=== PATIENT | female | born 1980 | race African-American/Black ===

== ENCOUNTER 2017-11-22 18:12 | Emergency (ER) | payer MEDICAID ==
[2017-11-22] MEDS ORDERED: Pantoprazole IV* 40 MG IV ONE (19:08)
[2017-11-22 19:46] LABS: ABS Basophils 0.1 10^3/ul (0-0.2); ABS Eosinophils 0.1 10^3/ul (0-0.6); ABS Lymphocytes 4.1 10^3/ul (1.0-4.8); ABS Neutrophils 6.1 10^3/ul (1.5-7.7); ABS Nucleated RBC 0 10^3/ul; Hematocrit 37 % (35-47); Hemoglobin 11.9 g/dl (12.0-16.0); Lymphocyte % 35.6 % (25-47); Mean Corpuscular HGB Conc 33 g/dl (31-36); Mean Corpuscular Hemoglobin 30 pg (27-31); Mean Corpuscular Volume 92 fL (80-97); Mean Platelet Volume 8 um3 (7.4-10.4); Nucleated Red Blood Cells % 0.2; Platelet Count 308 10^3/ul (150-450); Red Blood Count 3.98 10^6/ul (4.0-5.4); Red Cell Distribution Width 16 % (10.5-15); White Blood Count 11.4 10^3/ul (3.5-10.8)
[2017-11-22 19:53] LABS: Urine Appearance Clear; Urine Blood Negative (Negative); Urine Color Yellow; Urine Ketones Negative (Negative); Urine Protein Negative (Negative); Urine Specific Gravity 1.011 (1.010-1.030); Urine Urobilinogen Negative (Negative)
[2017-11-22 19:57] LABS: EGFR Non-African American 75.5 (>60)
--- NOTE | 2017-11-22 22:10 | ED ---
Gautam White Thomas, scribed for Jair Barnard MD on 11/22/17 at 1911 . Abdominal Pain/Female - HPI Summary HPI Summary: The patient is a 37 year old female complaining of sudden-onset epigastric and LUQ abd pain that began two hours ago after she ate dinner. The pain is described as sharp. She rates the pain 8/10. The pain is somewhat relieved at time of examination. Past medical history includes gastric bypass in 2002. She is an inpatient at [facility] for alcohol and opioids. - History of Current Complaint Chief Complaint: EDAbdPain Stated Complaint: ABD PAIN Time Seen by Provider: 11/22/17 18:34 Hx Obtained From: Patient Onset/Duration: Lasting Hours - 2, Still Present Timing: Constant Severity Currently: Severe Pain Intensity: 8 Pain Scale Used: 0-10 Numeric Location: Discrete At: LUQ, Epigastric Aggravating Factor(s): Food Alleviating Factor(s): Nothing Associated Signs and Symptoms: Positive: Negative - fever Allergies/Adverse Reactions: Allergies Allergy/AdvReac Type Severity Reaction Status Date / Time Penicillins Allergy Unknown Verified 11/22/17 21:50 Reaction Details Home Medications: Home Medications Ibuprofen TAB* [Motrin TAB* 400 MG] 400 mg PO Q6H PRN 11/22/17 [History Confirmed 11/22/17] PMH/Surg Hx/FS Hx/Imm Hx Sensory History: Denies: Hx Legally Blind EENT History: Denies: Hx Deafness Infectious Disease History: No Infectious Disease History: Denies: Traveled Outside the [place] in Last 30 Days - Family History Known Family History: Positive: Hypertension, Diabetes - Social History Alcohol Use: in [facility] for detox Substance Use Type: Reports: None Smoking Status (MU): Former Smoker Review of Systems Negative: Fever Positive: Abdominal Pain All Other Systems Reviewed And Are Negative: Yes Physical Exam - Summary Physical Exam Summary: Appearance: The patient is well-nourished in no acute distress and in no acute pain. Skin: The skin is warm and dry and skin color reflects adequate perfusion. HEENT: The head is normocephalic and atraumatic. The pupils are equal and reactive. The conjunctivae are clear and without drainage. Nares are patent and without drainage. Mouth reveals moist mucous membranes and the throat is without erythema and exudate. The external ears are intact. The ear canals are patent and without drainage. The tympanic membranes are intact. Neck: the neck is supple with full range of motion and non-tender. There are no carotid bruits. There is no neck vein distension. Respiratory: Chest is non-tender. Lungs are clear to auscultation and breath sounds are symmetrical and equal. Cardiovascular: Heart is regular rate and rhythm. There is no murmur or rub auscultated. There is no peripheral edema and pulses are symmetrical and equal. Abdomen: The abdomen is soft. There is mild supraumbilical tenderness. There are normal bowel sounds heard in all four quadrants and there is no organomegaly palpated. Musculoskeletal: There is no back tenderness noted. Extremities are non-tender with full range of motion. There is good capillary refill. There is no peripheral edema or calf tenderness elicited. Neurological: Patient is alert and oriented to person, place and time. The patient has symmetrical motor strength in all four extremities. Cranial nerves are grossly intact. Deep tendon reflexes are symmetrical and equal in all four extremities. Psychiatric: The patient has an appropriate affect and does not exhibit any anxiety or depression. Vital Signs On Initial Exam: Initial Vitals Temp Pulse Resp BP Pulse Ox 98.0 F 88 18 128/80 100 11/22/17 18:14 11/22/17 18:14 11/22/17 18:14 11/22/17 18:14 11/22/17 18:14 Diagnostics - Vital Signs Vital Signs Temp Pulse Resp BP Pulse Ox 11/22/17 18:20 91 100 11/22/17 18:14 98.0 F 88 18 128/80 100 - Laboratory Lab Results: Lab Results 11/22/17 11/22/17 11/22/17 Range/Units 19:29 19:29 19:29 WBC 11.4 H (3.5-10.8) 10^3/ul RBC 3.98 L (4.0-5.4) 10^6/ul Hgb 11.9 L (12.0-16.0) g/dl Hct 37 (35-47) % MCV 92 (80-97) fL MCH 30 (27-31) pg MCHC 33 (31-36) g/dl RDW 16 H (10.5-15) % Plt Count 308 (150-450) 10^3/ul MPV 8 (7.4-10.4) um3 Neut % (Auto) 53.8 (38-83) % Lymph % (Auto) 35.6 (25-47) % [place] % (Auto) 8.7 (1-9) % Eos % (Auto) 1.0 (0-6) % Baso % (Auto) 0.9 (0-2) % Absolute Neuts (auto) 6.1 (1.5-7.7) 10^3/ul Absolute Lymphs (auto) 4.1 (1.0-4.8) 10^3/ul Absolute Monos (auto) 1.0 H (0-0.8) 10^3/ul Absolute Eos (auto) 0.1 (0-0.6) 10^3/ul Absolute Basos (auto) 0.1 (0-0.2) 10^3/ul Absolute Nucleated RBC 0 10^3/ul Nucleated RBC % 0.2 Sodium 134 (133-145) mmol/L Potassium 3.6 (3.5-5.0) mmol/L Chloride 106 (101-111) mmol/L Carbon Dioxide 23 (22-32) mmol/L Anion Gap 5 (2-11) mmol/L BUN 11 (6-24) mg/dL Creatinine 0.84 (0.51-0.95) mg/dL Est GFR ( Amer) 97.1 (>60) Est GFR (Non-Af Amer) 75.5 (>60) BUN/Creatinine Ratio 13.1 (8-20) Glucose 80 (70-100) mg/dL Lactic Acid 0.8 (0.5-2.0) mmol/L Calcium 8.8 (8.6-10.3) mg/dL Total Bilirubin 0.40 (0.2-1.0) mg/dL AST 11 L (13-39) U/L ALT 9 (7-52) U/L Alkaline Phosphatase 63 (34-104) U/L C-Reactive Protein < 1.00 (< 5.00) mg/L Total Protein 6.5 (6.4-8.9) g/dL Albumin 3.7 (3.2-5.2) g/dL Globulin 2.8 (2-4) g/dL Albumin/Globulin Ratio 1.3 (1-3) Lipase 10 L (11.0-82.0) U/L Beta HCG, Quant < 0.60 mIU/mL Urine Color Urine Appearance Urine pH (5-9) Ur Specific [place] (1.010-1.030) Urine Protein (Negative) Urine Ketones (Negative) Urine Blood (Negative) Urine Nitrate (Negative) Urine Bilirubin (Negative) Urine Urobilinogen (Negative) Ur Leukocyte Esterase (Negative) Urine Glucose (Negative) 11/22/17 Range/Units 19:29 WBC (3.5-10.8) 10^3/ul RBC (4.0-5.4) 10^6/ul Hgb (12.0-16.0) g/dl Hct (35-47) % MCV (80-97) fL MCH (27-31) pg MCHC (31-36) g/dl RDW (10.5-15) % Plt Count (150-450) 10^3/ul MPV (7.4-10.4) um3 Neut % (Auto) (38-83) % Lymph % (Auto) (25-47) % [place] % (Auto) (1-9) % Eos % (Auto) (0-6) % Baso % (Auto) (0-2) % Absolute Neuts (auto) (1.5-7.7) 10^3/ul Absolute Lymphs (auto) (1.0-4.8) 10^3/ul Absolute Monos (auto) (0-0.8) 10^3/ul Absolute Eos (auto) (0-0.6) 10^3/ul Absolute Basos (auto) (0-0.2) 10^3/ul Absolute Nucleated RBC 10^3/ul Nucleated RBC % Sodium (133-145) mmol/L Potassium (3.5-5.0) mmol/L Chloride (101-111) mmol/L Carbon Dioxide (22-32) mmol/L Anion Gap (2-11) mmol/L BUN (6-24) mg/dL Creatinine (0.51-0.95) mg/dL Est GFR ( Amer) (>60) Est GFR (Non-Af Amer) (>60) BUN/Creatinine Ratio (8-20) Glucose (70-100) mg/dL Lactic Acid (0.5-2.0) mmol/L Calcium (8.6-10.3) mg/dL Total Bilirubin (0.2-1.0) mg/dL AST (13-39) U/L ALT (7-52) U/L Alkaline Phosphatase (34-104) U/L C-Reactive Protein (< 5.00) mg/L Total Protein (6.4-8.9) g/dL Albumin (3.2-5.2) g/dL Globulin (2-4) g/dL Albumin/Globulin Ratio (1-3) Lipase (11.0-82.0) U/L Beta HCG, Quant mIU/mL Urine Color Yellow Urine Appearance Clear Urine pH 5.0 (5-9) Ur Specific [place] 1.011 (1.010-1.030) Urine Protein Negative (Negative) Urine Ketones Negative (Negative) Urine Blood Negative (Negative) Urine Nitrate Negative (Negative) Urine Bilirubin Negative (Negative) Urine Urobilinogen Negative (Negative) Ur Leukocyte Esterase Negative (Negative) Urine Glucose Negative (Negative) Result Diagrams: 11/22/17 19:29 11/22/17 19:29 Lab Statement: Any lab studies that have been ordered have been reviewed, and results considered in the medical decision making process. Abdominal Pain Fem Course/Dx - Course Course Of Treatment: Ms. Salamanca presented with some mild epigastric pain after eating. She comes from [facility] where she has been a patient for about a week for ETOH detox. She had a gastric bypass in '03 and hasn't had any problems with it. Because her symptomatology is so mild and her exam also, I am treating her with protonix and carafate with the hope that we see a strong improvement. Her WBCs are very lightly increased which is nonspecific and if she doesn't improve , she will need a CT. - Diagnoses Provider Diagnoses: Abdominal pain Discharge - Discharge Plan Condition: Stable Disposition: HOME Patient Education Materials: Abdominal Pain (ED) Referrals: [facility] [place] - 3 Days Additional Instructions: Follow up with your primary care physician in three days. If you do not have a primary care provider, you can use the [facility] [place] to find one and make an appointment. Return to the emergency department for any new or worsening symptoms. The documentation as recorded by the Gautam barragan Thomas accurately reflects the service I personally performed and the decisions made by me, Jair Barnard MD.
--- NOTE | 2017-11-22 22:51 | ED ---
Progress - Progress Note Progress Note: pt here for epigastric discomfort after eating that is now largely gone. LFTs wnl. Hx of gastric bypass. Pt now is most concerned with sinus sx she has had for several weeks. States she was recently on Augmentin and only took 3 days of med prior to being sent to [facility] program here locally. Wants more antibiotic. Re-Evaluation - Re-Evaluation First Eval Change: Improved - abd is soft and non-tender. Pt is comfortable. Ears and throat clear. Course/Dx - Course Course Of Treatment: Ms. Salamanca presented with some mild epigastric pain after eating. She comes from [facility] where she has been a patient for about a week for ETOH detox. She had a gastric bypass in '03 and hasn't had any problems with it. Because her symptomatology is so mild and her exam also, I am treating her with protonix and carafate with the hope that we see a strong improvement. Her WBCs are very lightly increased which is nonspecific and if she doesn't improve , she will need a CT. Pt's abd discomfort now largely resolved. She is most concerned with her sinuses, being off med. Abd non-tender on exam. Recommend outpt US. D/C Ibuprofen which may be causing sx/possible gastritis. D/C on pepcid, carafate and augmentin. - Diagnoses Provider Diagnoses: Abdominal pain, Sinusitis, acute
[2017-11-22 23:09] VITALS: BP 112/70
== END 2017-11-22 23:09 | disposition home or self-care (01) ==
LOC: ED 18:12
DX: R10.12 Left upper quadrant pain (principal); J01.90 Acute sinusitis, unspecified; Z87.891 Personal history of nicotine dependence
CPT/HCPCS: 36415; 80053; 81003; 83605; 83690; 84702; 85025; 86140; 87040; 96374; 99283

== ENCOUNTER 2017-12-15 15:48 | Emergency (ER) | payer MEDICAID ==
[2017-12-15 16:59] VITALS: BP 152/91
--- NOTE | 2017-12-15 17:34 | UC ---
Headache HPI - HPI Summary HPI Summary: Pt presents with complaints of increasing headaches. She tells me that she has a history of migraines, but over the last month her headaches have felt different. Intermittently at random at least one everyday she will have 3-5 seconds of 10/10 b/l temporal pain that feels like tension. She was diagnosed with a sinus infection about 3 weeks ago and given Augmentin, which she stopped taking after 2 days when she realized it was Penicillin - they replaced it with doxycycline. Her sinus symptoms have improved. She has a history of opioid abuse and gastric bypass - as a result she can only take tylenol for her pain, which has been providing no relief. She is also on many mental health medications and says these have been adjusted up and down over the last few weeks. Also complains of lower dental pain on both sides and wonders if this could be causing her pain. Has f/u with a dentist but is unsure when. She denies vision changes, dizziness, SOB, chest pain, nausea, vomiting, trauma, or LOC. - History Of Current Complaint Chief Complaint: UCHeadache Stated Complaint: HEADACHE Time Seen by Provider: 12/15/17 17:24 Hx Obtained From: Patient Hx Last Menstrual Period: 12/03/17 Onset/Duration: Gradual Onset Currently Pain Is: Mild Pain Intensity: 4 Pain Scale Used: 0-10 Numeric Timing: Intermittent, Lasting:, Seconds Character: Throbbing, Pressure Location of Headache: Temporal Aggravating Factor(s): Nothing Allevating Factor(s): Nothing - Allergies/Home Medications Allergies/Adverse Reactions: Allergies Allergy/AdvReac Type Severity Reaction Status Date / Time Penicillins Allergy Unknown Verified 12/15/17 16:59 Reaction Details Home Medications: Home Medications Acetaminophen [Tylenol] 12/15/17 [History] Buprenorphine HCl/Naloxone HCl [Suboxone 12 mg-3 mg Sl Film] 12/15/17 [History Confirmed 12/15/17] Escitalopram Oxalate [Lexapro 20 mg] 20 mg PO DAILY 12/15/17 [History Confirmed 12/15/17] Gabapentin CAP(*) [Neurontin 400 mg CAP(*)] 400 mg PO BID 12/15/17 [History Confirmed 12/15/17] Lurasidone(*) [Latuda] 30 mg PO BID 12/15/17 [History Confirmed 12/15/17] Prazosin CAP* [Minipress CAP*] 4 mg PO DAILY 12/15/17 [History Confirmed ] Topiramate [Topiramate ER 50 mg cap] 50 mg PO BID 12/15/17 [History Confirmed ] cloNIDine TAB* [Catapres 0.1 MG TAB*] 0.1 mg PO TID PRN 12/15/17 [History Confirmed 12/15/17] diPHENhydraMINE PO* [Benadryl PO 25 MG TAB*] 25 mg PO DAILY PRN 12/15/17 [ History Confirmed 12/15/17] PMH/Surg Hx/FS Hx/Imm Hx - Additional Past Medical History Additional PMH: Migraines Opioid abuse Gastric bypass status GI/ History: Gastroesophageal Reflux Psychological History: Anxiety, Depression - Surgical History Surgical History: Yes Surgery Procedure, Year, and Place: gastric bypass, hep c treated - Family History Known Family History: Positive: Hypertension, Diabetes - Social History Lives: Shelter Alcohol Use: None Substance Use Type: None Smoking Status (MU): Former Smoker Review of Systems Constitutional: Negative Skin: Negative Eyes: Negative ENT: Negative Respiratory: Negative Cardiovascular: Negative Gastrointestinal: Negative Neurovascular: Negative Musculoskeletal: Negative Neurological: Headache Psychological: Negative All Other Systems Reviewed And Are Negative: Yes Physical Exam - Summary Physical Exam Summary: GENERAL: NAD. WDWN. No pain distress. SKIN: No rashes, sores, ulcers, masses, lesions. HEENT: Head: AT/NC Eyes: PERRLA. EOM intact. Conjunctiva clear without inflammation or discharge. Ears: Hearing grossly normal. TMs intact, no bulging, erythema, or edema. Mouth: Gross dental caries throughout. Fractured tooth at #19 and #30. No cellulitis or abscess. NECK: Supple. Nontender. No lymphadenopathy. FROM. CHEST: CTAB. No r/r/w. No accessory muscle use. Breathing comfortably and in no distress. CV: RRR. Without m/r/g. Pulses intact. Brisk cap refill. MSK: FROM and 5/5 strength B/L UEs and LEs. Sensations intact C4-T1. NEURO: A&Ox3. 3 word recall, remote, recent memory, ability to follow 2-step directions, and attention intact. CN II-XII grossly intact. [id number] intact. Gait with normal base. Romberg: maintains balance, no pronator drift. Normal speech. No facial drooping. PSYCH: Age appropriate behavior. Triage Information Reviewed: Yes Vital Signs: Initial Vital Signs Temp 98.2 F 12/15/17 16:52 Pulse 95 12/15/17 16:52 Resp 18 12/15/17 16:52 BP 152/91 12/15/17 16:52 Pulse Ox 98 12/15/17 16:52 Headache Course/Dx - Course Course Of Treatment: Head CT: IMPRESSION: NO EVIDENCE FOR ACUTE INTRACRANIAL ABNORMALITY. I suspect her headaches are the result of her recent medication adjustments. I will refer her to neurology as she doesn't think the one time a month she sees her provided PCP is adequate. Advised to f/u with whomever is prescribing her mental health medications for additional adjustment. Will try magic mouthwash for her dental pain. - Differential Dx/Diagnosis Provider Diagnoses: Headache Discharge - Discharge Plan Condition: Stable Disposition: HOME Prescriptions: Magic M W2 Osvaldo/Maal/Nyst/Lido* 5 ml SWISH SPIT TID PRN #90 ml PRN Reason: Pain Patient Education Materials: Tension Headache (ED) Referrals: No Primary Care Phys,NOPCP [Primary Care Provider] - Kinza Pope MD [Medical Doctor] - As Soon As Possible Additional Instructions: If you develop a fever, shortness of breath, chest pain, new or worsening symptoms - please call your PCP or go to the ED. Your blood pressure was high at todays visit. Please see your primary provider within 4 weeks for recheck and re-evaluation. 1) Please call Neurology at the number below to schedule a follow up appointment regarding your increasing headaches.
--- NOTE | 2017-12-15 18:08 | RAD ---
INDICATION: Headache. COMPARISON: There are no prior studies available for comparison. TECHNIQUE: Contiguous axial sections of the brain were obtained from the skull base to the vertex without contrast. FINDINGS: The ventricles, cisterns and sulci are within normal limits. No significant focal abnormality or mass effect is seen. There is no evidence for hemorrhage. No significant focal osseous abnormality is seen. The visualized portion of the paranasal sinuses and mastoid air cells appear clear. IMPRESSION: NO EVIDENCE FOR ACUTE INTRACRANIAL ABNORMALITY.
== END 2017-12-15 18:36 | disposition home or self-care (01) ==
LOC: UCEAST 15:48
DX: R51 Headache (principal); K08.89 Other specified disorders of teeth and supporting structures; K21.9 Gastro-esophageal reflux disease without esophagitis; F41.9 Anxiety disorder, unspecified; F32.9 Major depressive disorder, single episode, unspecified; Z88.0 Allergy status to penicillin; Z87.891 Personal history of nicotine dependence
CPT/HCPCS: 70450; 99212; G0463

== ENCOUNTER 2018-01-03 19:14 | Emergency (ER) | payer MEDICAID, OTHER ==
[2018-01-03 19:27] VITALS: BP 137/97
--- NOTE | 2018-01-03 19:50 | UC ---
Knee Pain HPI - HPI Summary HPI Summary: 37 y/o female presents to the urgent care c/o RT knee pain that is worse since this morning. Pt reports she has HX of B/L knee meniscus repair in 2005 in [place]. However for the past month she has experience pain os and of of RT knee, specially when she gets out of bed in the morning and when she stands up. She has taking Tylenol PO to alleviate symptoms since she can't take any NSAIDS due to Hx of Gastric Bypass. She is also on Suboxone Tx. Pain is 8/10 w/ movement and 4/10 at test, radiating at times to her RT lower leg and Rt ankle. Pt denies Numbness and tingling sensation over the lower extremity,m SOB, chest pain, abdominal pain, N/V/D. - History of Current Complaint Chief Complaint: UCLowerExtremity Stated Complaint: KNEE PAIN Time Seen by Provider: 01/03/18 19:31 Hx Obtained From: Patient Hx Last Menstrual Period: 12/03/17 ?: No Onset/Duration: Gradual Onset, Lasting Days - past month on and off, Worse Since - this morning Severity Initially: Mild Severity Currently: Moderate Pain Intensity: 5 Pain Scale Used: 0-10 Numeric Character: Sharp Alleviating Factor(s): Rest, Cold, OTC Meds - Tylenol Associated Signs And Symptoms: Positive: Swelling. Negative: Redness, Bruising , Fever, Numbness, Tingling Able to Bear Weight: Yes - Risk Factors Septic Arthritis Risk Factor: Negative Gout Risk Factor: Negative - Allergies/Home Medications Allergies/Adverse Reactions: Allergies Allergy/AdvReac Type Severity Reaction Status Date / Time Penicillins Allergy Unknown Verified 01/03/18 19:27 Reaction Details PMH/Surg Hx/FS Hx/Imm Hx Previously Healthy: Yes Respiratory History: Asthma Other History Of: Hepatitis C - Surgical History Surgical History: Yes Surgery Procedure, Year, and Place: gastric bypass, hep c treated - Family History Known Family History: Positive: Hypertension, Diabetes - Social History Occupation: Unemployed Lives: With Family Alcohol Use: None Substance Use Type: None Smoking Status (MU): Former Smoker Review of Systems Constitutional: Negative Skin: Negative Eyes: Negative ENT: Negative, Dental Pain Cardiovascular: Negative Gastrointestinal: Negative Genitourinary: Negative Motor: Decreased ROM - RT knee Neurovascular: Negative Musculoskeletal: Decreased ROM - RT knee, Other: - RT knee pain radiating at the lower leg at times Neurological: Negative Psychological: Negative Is Patient Immunocompromised?: No All Other Systems Reviewed And Are Negative: Yes Physical Exam - Summary Physical Exam Summary: Vital Signs Reviewed: Yes General: well developed, well nourished male sitting in the examining table w/o any apparent distress Eyes: Positive: Conjunctiva Clear - PERRLA, EOMI, fundi grossly normal ENT: Positive: Normal ENT inspection, Hearing grossly normal, Pharynx normal, TMs normal Neck: Positive: Supple, Nontender, No Lymphadenopathy Respiratory: Positive: Chest nontender, Lungs clear, Normal breath sounds, No respiratory distress Cardiovascular: Positive: RRR, No Murmur, Pulses Normal, Brisk Capillary Refill Abdomen Description: Positive: Nontender, No Organomegaly, Soft. Negative: CVA Tenderness (R), CVA Tenderness (L) Bowel Sounds: Positive: Present Musculoskeletal: Positive: Strength Intact, No Edema, RT Knee: Pt is able to bear weight and ambulate w/o limping. No surface trauma, mild soft tissue swelling on lateral side of knee and part of patella, No obvious effusion. No overlying erythema or warmth. The R knee is without obvious asymmetry or deformity when compared with the R knee. RT knee:21" LF knee:20". Decreased ROM of RT knee due to pain. No tenderness to palpation of the patella, no effusion or ballottement. No tenderness over the infrapatellar tendon. Point tenderness over the lateral joint line, No tenderness over the medial joint line. No tenderness over the proximal fibular head, No tenderness, fullness or mass of the popliteal fossa. No quadriceps tenderness. No laxity of the ACL. PCL, MCL, or LCL. no collateral ligament laxity to valgus or varus stress. Negative Sheila/Drawer sign. Negative Ethel. Distal motor and neurovascular status intact. Neurological Exam: Normal Psychological Exam: Normal Skin Exam: Normal Triage Information Reviewed: Yes Vital Signs: Initial Vital Signs Temp 98.1 F 01/03/18 19:22 Pulse 73 01/03/18 19:22 Resp 20 01/03/18 19:22 BP 137/97 01/03/18 19:22 Pulse Ox 99 01/03/18 19:22 Knee Pain Course/Dx - Course Course Of Treatment: 37 y/o female presents to the urgent care c/o RT knee pain that is worse since this morning. Pt reports she has HX of B/L knee meniscus repair in 2005 in [place]. However for the past month she has experience pain os and of of RT knee, specially when she gets out of bed in the morning and when she stands up. She has taking Tylenol PO to alleviate symptoms since she can't take any NSAIDS due to Hx of Gastric Bypass. She is also on Suboxone Tx. Pain is 8/10 w/ movement and 4/10 at test, radiating at times to her RT lower leg and Rt ankle. Pt denies Numbness and tingling sensation over the lower extremity,m SOB, chest pain, abdominal pain, N/V/D. Hx obtained. Pr w/ mild swelling on the lateral side of RT knee w/o and point tenderness over the same area on examination. RT knee X-Rays ordered: Impression:Osteoarthritis, No acute osseous injury. Pt's knee immobilized w/ Knee immobilizer and given a Cane for 1 week. Advised RICE. Pt Rx Tylenol; and advised to avoid strenuous exercise or standing for long period of time. if not improvement of symptoms to f/u with Orthopedic Dr Browne or your PCP in 1 week for further evaluation and treatment. Pt's BP is elevated today advised to decrease salt in diet, monitor BP and f/u with PCP for further management. PT understood and agreed with D/C instructions. - Differential Dx/Diagnosis Differential Diagnosis/HQI/PQRI: Bursitis, Contusion, Gout, Patellofemoral Syndrome, Sprain, Strain, Other - osteoarthritis Provider Diagnoses: 1-Acute Rt knee pain. 2-RT knee osteoarthritis. 3- Elevated BP w/o Hx of HTN Discharge - Sign-Out/Discharge Documenting (check all that apply): Discharge - Discharge Plan Condition: Stable Disposition: HOME Prescriptions: Acetaminophen TAB* [Tylenol TAB*] 650 mg PO Q6H PRN #30 tab PRN Reason: Pain Patient Education Materials: Osteoarthritis (ED), Knee Pain (ED), Low-Sodium Diet (ED) Referrals: [facility] [place] [facility] [Outside] - 1 Week Ap Browne MD [Medical Doctor] - 1 Week Additional Instructions: 1-Please take medications as directed to alleviate pain and swelling. 2-Please apply ice, keep your knee immobilized with the Knee immobilizer, avoid standing for long periods of time, avoid sternums exercise. 3- Please f/u with Orthopedic Dr Browne or your PCP in 1 week for further evaluation and treatment. 4-Your BP is elevated today. please decrease salt in your diet, monitor BP and if it continues to be elevated please f/u with your PCP for further management. - Billing Disposition and Condition Condition: STABLE Disposition: HOME
--- NOTE | 2018-01-03 20:22 | RAD ---
HISTORY: Acute right knee pain COMPARISONS: None VIEWS: 4, Frontal, lateral, axial, and oblique views of the right knee FINDINGS: BONE DENSITY: Normal. BONES: There is no displaced fracture. JOINTS: There is moderate tricompartmental osteoarthritis. There is no suprapatellar joint effusion or lipohemarthrosis. ALIGNMENT: There is no dislocation. SOFT TISSUES: Unremarkable. OTHER FINDINGS: None. IMPRESSION: OSTEOARTHRITIS. NO ACUTE OSSEOUS INJURY. IF SYMPTOMS PERSIST, RECOMMEND REPEAT IMAGING.
[2018-01-03] MEDS ORDERED: Acetaminophen TAB* 325 MG PO ONE (20:29)
== END 2018-01-03 20:40 | disposition home or self-care (01) ==
LOC: UCEAST 19:14
DX: M25.561 Pain in right knee (principal); M17.11 Unilateral primary osteoarthritis, right knee; R03.0 Elevated blood-pressure reading, without diagnosis of hypertension; J45.909 Unspecified asthma, uncomplicated; Z88.0 Allergy status to penicillin; Z87.891 Personal history of nicotine dependence
CPT/HCPCS: 99213; A9270-GY; G0463